=== PATIENT | female | born 1965 | race Caucasian/White ===

== ENCOUNTER 2016-05-27 08:12 | Day surgery (SDC) | payer BC ==
--- NOTE | ~2016-05-27 | EGD ---
EGD REPORT [facility] [address] [id number] NAME: OTLIIO CISNEROS : 65 STATUS : [place] [facility] [place] [id number] AGE: 50 ADM/REG DATE : 05/27/16 MR#: [id number] REPORT SERV DATE: 05/27/16 DICTATED BY: ANTONIO SANDERS DATE: 05/27/16 REPORT STATUS : Draft [facility] DATE: 05/27/16 [facility] Patient Name: Otilio Cisneros Date of : 1965 Attending MD: JOEL SANDERS MD Procedure Date No Time: 05/27/2016 Procedure: Colonoscopy Indications: Screening for colorectal malignant neoplasm, This is the patient's first colonoscopy Referring MD: NEYMAR BRAVO Medicines: See the Anesthesia note for documentation of the administered medications Complications: No immediate complications. Estimated blood loss: None. Procedure: Pre-Anesthesia Assessment: - ASA Grade Assessment: II - A patient with mild systemic disease. - Prior to the procedure, a History and Physical was performed, and patient medications and allergies were reviewed. The patient's tolerance of previous anesthesia was also reviewed. The risks and benefits of the procedure and the sedation options and risks were discussed with the patient. All questions were answered, and informed consent was obtained. Prior Anticoagulants: The patient has taken no previous anticoagulant or antiplatelet agents. After reviewing the risks and benefits, the patient was deemed in satisfactory condition to undergo the procedure. After I obtained informed consent, the scope was passed under direct vision. Throughout the procedure, the patient's blood pressure, pulse, and oxygen saturations were monitored continuously. The PCF [id number] was introduced through the anus and advanced to the terminal ileum. The ileocecal valve, appendiceal orifice, terminal ileum and rectum were photographed. The entire colon was examined. The colonoscopy was performed without difficulty. The patient tolerated the procedure well. The quality of the bowel preparation was adequate. Findings: The perianal and digital rectal examinations were normal. The terminal ileum appeared normal. A sessile polyp was found in the cecum. The polyp was diminutive in size. The polyp was removed with a cold biopsy forceps. Resection and retrieval were complete. A flat polyp was found in the proximal transverse colon. The polyp was 6 EGD REPORT [place] [address] [place]. [address] NAME: OTILIO CISNEROS : [birth year] STATUS : REG [facility]#: [id number] AGE: 50 ADM/REG DATE : 05/27/16 MR#: [id number] REPORT SERV DATE: 05/27/16 DICTATED BY: ANTONIO SANDERS DATE: 05/27/16 REPORT STATUS : Draft [facility] DATE: 05/27/16 mm in size. The polyp was removed with a piecemeal technique using a cold snare. Resection and retrieval were complete. A sessile polyp was found in the distal transverse colon. The polyp was 3 mm in size. The polyp was removed with a cold biopsy forceps. Resection and retrieval were complete. A sessile polyp was found at 30 cm proximal to the anus. The polyp was 10 mm in size. The polyp was removed with a hot snare. Resection and retrieval were complete. There was a small lipoma, at the hepatic flexure. A few small-mouthed diverticula were found in the sigmoid colon and in the descending colon. Non-bleeding internal hemorrhoids were found during retroflexion and were Grade I (internal hemorrhoids that do not prolapse). Impression: - The examined portion of the ileum was normal. - One diminutive polyp in the cecum. Resected and retrieved. - One 6 mm polyp in the proximal transverse colon. Resected and retrieved. - One 3 mm polyp in the distal transverse colon. Resected and retrieved. - One 10 mm polyp at 30 cm proximal to the anus. Resected and retrieved. - Small lipoma at the hepatic flexure. - Diverticulosis in the sigmoid colon and in the descending colon. - Non-bleeding internal hemorrhoids. Recommendation: - Patient has a contact number available for emergencies. The signs and symptoms of potential delayed complications were discussed with the patient. Return to normal activities tomorrow. Written discharge instructions were provided to the patient. - High fiber diet indefinitely. - Discharge patient to home. - Continue present medications. - Await pathology results. - Repeat colonoscopy in 3 years for surveillance. Procedure Code(s): --- Professional --- 35941, Colonoscopy, flexible, proximal to splenic flexure; with removal of tumor(s), polyp(s), or other lesion(s) by snare technique 27367, 59, Colonoscopy, flexible, proximal to splenic flexure; with biopsy, single or multiple Diagnosis Code(s): --- Professional --- EGD REPORT [address] [address] NAME: OTILIO CISNEROS : 65 STATUS : [place] [facility] [place]#: [id number] AGE: 50 ADM/REG DATE : 05/27/16 MR#: [id number] REPORT SERV DATE: 05/27/16 DICTATED BY: ANTONIO SANDERS DATE: 05/27/16 REPORT STATUS : Draft TRANSCRIBED BY: [employer] DATE: 05/27/16 K64.0, First degree hemorrhoids K57.30, Diverticulosis of large intestine without perforation or abscess without bleeding D12.6, Benign neoplasm of colon, unspecified D12.3, Benign neoplasm of transverse colon D12.0, Benign neoplasm of cecum D17.5, Benign lipomatous neoplasm of intra-abdominal organs Z12.11, Encounter for screening for malignant neoplasm of colon CPT copyright 2013 [employer] [place] [employer]. All rights reserved. The codes documented in this report are preliminary and upon medical billing coder review may be revised to meet current compliance requirements. JOEL SANDERS MD 05/27/2016 10:03 AM This report has been signed electronically. Number of Addenda: 0 Note Initiated On: 05/27/2016 9:27 AM Scope Withdrawal Time 0 hours 16 minutes 8 seconds [id number] [id number]
[~2016-05-27 08:12] MED LIST: ADVIL PO; ALLERGY SHOTS; CLARIT10 PO; CYANO1000T PO; FLONASE NAS; FLOVENT110 INH; PROAIR HFA INH; SINGULAIR1 PO; VITAMIN D31000 UNIT PO; ZANTAC 75 PO; ZANTAC150 MG PO
== END 2016-05-27 23:59 | disposition home or self-care (01) ==
LOC: DMU 08:12
PROVIDERS: Internal Medicine Gastroenterology
PROC: 0DBL8ZZ Excision of Transverse Colon, Via Natural or Artificial Opening Endoscopic (ICD-10-PCS; 2016-05-27)
PROC: 0DBH8ZZ Excision of Cecum, Via Natural or Artificial Opening Endoscopic (ICD-10-PCS; principal; 2016-05-27 09:30)
PROC: 0DBQ8ZZ Excision of Anus, Via Natural or Artificial Opening Endoscopic (ICD-10-PCS; 2016-05-27 09:30)
DX: Z12.11 Encounter for screening for malignant neoplasm of colon (principal); D12.0 Benign neoplasm of cecum; D12.3 Benign neoplasm of transverse colon; D12.6 Benign neoplasm of colon, unspecified; K64.0 First degree hemorrhoids; K57.30 Diverticulosis of large intestine without perforation or abscess without bleeding; E66.9 Obesity, unspecified; Z88.8 Allergy status to other drugs, medicaments and biological substances; J45.909 Unspecified asthma, uncomplicated; Z79.899 Other long term (current) drug therapy; Z79.51 Long term (current) use of inhaled steroids
CPT/HCPCS: 88305